=== PATIENT | male | born 1955 | race Caucasian/White ===

== ENCOUNTER → 2019-07-15 | Outpatient (CLI) | payer OTHER ==
[2019-07-15 11:18] LABS: BASO % 0.5 % (0.0-2.0); EOS # 0.1 (0.0-0.7); EOS % 2.6 % (0-4.0); GRAN # 2.1 (1.4-6.5); GRAN % 53.7 % (42.2-75.2); HEMATOCRIT 40.2 % (42.0-52.0); HEMOGLOBIN 13.1 g/dl (13.5-18.0); LYMPH # 1.1 (1.2-3.4); LYMPH % 28.2 % (20.0-51.0); MEAN CELL VOLUME 96 fl (80.0-100.0); MEAN CORPUSCULAR HEMOGLOBIN 31 pg (27.0-31.0); MEAN CORPUSCULAR HGB CONC 33 g/dl (33.0-37.0); MEAN PLATELET VOLUME 10.9 fl (7.4-10.4); MONO # 0.6 (0.1-0.6); MONO % 14.7 % (1.7-9.3); PLATELET COUNT 137 K/mm3 (130-400); RED BLOOD COUNT 4.21 M/mm3 (4.20-5.60); REDCELL DISTRIBUTION WIDTH-CV 14.6 % (11.5-14.5)
[2019-07-15 11:44] LABS: ALBUMIN 4.1 gm/dL (3.5-5.0); BILIRUBIN,TOTAL 0.9 mg/dL (0.0-1.0); CALCIUM 9.2 mg/dL (8.4-10.2); CHOLESTEROL RISK RATIO 2.5; CREATININE, serum 0.8 (0.66-1.25); POTASSIUM 4.5 mmol/L (3.4-5.0); TOTAL PROTEIN 7.3 gm/dL (6.4-8.2)
[2019-07-15 12:13] LABS: THYROID STIMULATING HORMONE 2.24 uIU/mL (0.465-4.680)
== END ==
LOC: ZLAB.FHCC 10:59
PROVIDERS: Pediatrics
DX: I48.91 Unspecified atrial fibrillation (principal); F10.929 Alcohol use, unspecified with intoxication, unspecified

== ENCOUNTER 2019-11-20 14:37 | Emergency (ER) | payer SELFPAY ==
[~2019-11-20] VITALS: Ht 182.9 cm; Wt 102.3 kg
[2019-11-20 14:51] VITALS: TEMP 98.2
[2019-11-20 15:54] LABS: COLLECTION METHOD CLEAN CATCH
[2019-11-20 15:59] LABS: BASO % 0.4 % (0.0-2.0); EOS # 0.2 (0.0-0.7); EOS % 3.6 % (0-4.0); GRAN # 3.5 (1.4-6.5); GRAN % 65.9 % (42.2-75.2); HEMOGLOBIN 11.3 g/dl (13.5-18.0); LYMPH % 19.6 % (20.0-51.0); MEAN CELL VOLUME 94 fl (80.0-100.0); MEAN CORPUSCULAR HEMOGLOBIN 30 pg (27.0-31.0); MEAN CORPUSCULAR HGB CONC 32 g/dl (33.0-37.0); MEAN PLATELET VOLUME 12.1 fl (7.4-10.4); MONO # 0.5 (0.1-0.6); MONO % 10.3 % (1.7-9.3); PLATELET COUNT 101 K/mm3 (130-400); RED BLOOD COUNT 3.76 M/mm3 (4.20-5.60); REDCELL DISTRIBUTION WIDTH-CV 18.4 % (11.5-14.5)
[2019-11-20 16:00] LABS: HEMATOCRIT 35.5 % (42.0-52.0)
[2019-11-20 16:02] LABS: PH 6 (5-8); SQUAMOUS EPITHELIAL 0-2 /hpf; URINE APPEARANCE Clear; URINE BACTERIA Rare /hpf; URINE BILIRUBIN Negative (NEGATIVE); URINE BLOOD 2+ (NEGATIVE); URINE COLOR Yellow; URINE GLUCOSE Negative (NEGATIVE); URINE KETONE Negative (NEGATIVE); URINE LEUKOCYTE ESTERASE Negative (NEGATIVE); URINE NITRATE Negative (NEGATIVE); URINE PROTEIN(semi-quant) Negative (NEGATIVE); URINE UROBILINOGEN >=4.0 mg/dL (NEGATIVE)
[2019-11-20 16:31] LABS: INR 1.6 (0.8-3.0); PROTHROMBIN TIME 17.7 SECONDS (9.7-12.8)
[2019-11-20 16:39] LABS: ALBUMIN 3.4 gm/dL (3.5-5.0); BILIRUBIN,TOTAL 1.7 mg/dL (0.0-1.0); C-REACTIVE PROTEIN 3.8 mg/dL (0.0-0.9); CALCIUM 8.3 mg/dL (8.4-10.2); CREATININE, serum 0.92 (0.66-1.25); POTASSIUM 3.9 mmol/L (3.4-5.0); TOTAL PROTEIN 8.2 gm/dL (6.4-8.2)
[2019-11-20 18:30] VITALS: BP 140/97; PULSE 138
== END 2019-11-20 18:30 | disposition short-term general hospital (02) ==
LOC: COL.ER 14:37
PROVIDERS: Emergency Medicine
DX: L03.116 Cellulitis of left lower limb (principal); L03.115 Cellulitis of right lower limb; I48.91 Unspecified atrial fibrillation; N50.89 Other specified disorders of the male genital organs; Z86.73 Personal history of transient ischemic attack (TIA), and cerebral infarction without residual deficits
CPT/HCPCS: J3370; J7030; J7050

== ENCOUNTER 2020-01-10 19:40 | Inpatient (IN) | payer OTHER ==
[2020-01-10] VITALS (74 sets, daily range): BP systolic 119; BP diastolic 87; PULSE 150–155; TEMP 98.1–98.3; O2SAT 95–100
[~2020-01-10] VITALS: Ht 182.9 cm; Wt 111.9 kg
[2020-01-10 19:58] LABS: BASO % 0.6 % (0.0-2.0); EOS # 0.2 (0.0-0.7); EOS % 4.7 % (0-4.0); GRAN # 2.6 (1.4-6.5); GRAN % 51.1 % (42.2-75.2); HEMOGLOBIN 11.5 g/dl (13.5-18.0); LYMPH # 1.7 (1.2-3.4); LYMPH % 33.1 % (20.0-51.0); MEAN CELL VOLUME 94 fl (80.0-100.0); MEAN CORPUSCULAR HEMOGLOBIN 31 pg (27.0-31.0); MEAN CORPUSCULAR HGB CONC 33 g/dl (33.0-37.0); MEAN PLATELET VOLUME 9.5 fl (7.4-10.4); MONO # 0.5 (0.1-0.6); MONO % 10.3 % (1.7-9.3); PLATELET COUNT 130 K/mm3 (130-400); RED BLOOD COUNT 3.75 M/mm3 (4.20-5.60); REDCELL DISTRIBUTION WIDTH-CV 17.8 % (11.5-14.5)
[2020-01-10 19:59] LABS: HEMATOCRIT 35.3 % (42.0-52.0)
[2020-01-10 20:02] LABS: INR 1.3 (0.8-3.0); PROTHROMBIN TIME 14.7 SECONDS (9.7-12.8)
[2020-01-10 20:11] LABS: ALANINE AMINOTRANSFERASE 13 U/L (4-49); ALBUMIN 4.2 gm/dL (3.5-5.0); ALKALINE PHOSPHATASE 120 U/L (50-136); ANION GAP 11 mmol/L (7-16); AST,SGOT 35 U/L (15-37); BILIRUBIN,TOTAL 1.1 mg/dL (0.0-1.0); BLOOD UREA NITROGEN 8 mg/dL (9-20); C-REACTIVE PROTEIN 1.4 mg/dL (0.0-0.9); CARBON DIOXIDE 20 mmol/L (22-30); CHLORIDE 103 mmol/L (98-107); CREATININE, serum 0.77 (0.66-1.25); GLUCOSE 90 mg/dL (74-106); POTASSIUM 3.8 mmol/L (3.4-5.0); SODIUM 134 mmol/L (137-145)
[2020-01-10 20:27] LABS: TROPONIN-I < 0.012 ng/mL (0.000-0.035)
[2020-01-11] VITALS (702 sets, daily range): BP systolic 105–134; BP diastolic 75–101; PULSE 86–137; TEMP 97.9–98.4; O2SAT 63–100
[2020-01-11 05:36] LABS: BASO % 0.5 % (0.0-2.0); EOS # 0.2 (0.0-0.7); EOS % 4.6 % (0-4.0); GRAN # 2.3 (1.4-6.5); GRAN % 52.8 % (42.2-75.2); HEMOGLOBIN 10.7 g/dl (13.5-18.0); LYMPH # 1.3 (1.2-3.4); LYMPH % 28.8 % (20.0-51.0); MEAN CELL VOLUME 95 fl (80.0-100.0); MEAN CORPUSCULAR HEMOGLOBIN 31 pg (27.0-31.0); MEAN CORPUSCULAR HGB CONC 32 g/dl (33.0-37.0); MEAN PLATELET VOLUME 9.8 fl (7.4-10.4); MONO # 0.6 (0.1-0.6); MONO % 13.1 % (1.7-9.3); PLATELET COUNT 119 K/mm3 (130-400); REDCELL DISTRIBUTION WIDTH-CV 17.9 % (11.5-14.5)
[2020-01-11 05:37] LABS: HEMATOCRIT 33.1 % (42.0-52.0)
[2020-01-11 05:45] LABS: ALANINE AMINOTRANSFERASE 12 U/L (4-49); ALBUMIN 3.6 gm/dL (3.5-5.0); ALKALINE PHOSPHATASE 101 U/L (50-136); ANION GAP 7 mmol/L (7-16); AST,SGOT 31 U/L (15-37); BLOOD UREA NITROGEN 8 mg/dL (9-20); CALCIUM 8.6 mg/dL (8.4-10.2); CARBON DIOXIDE 23 mmol/L (22-30); CHLORIDE 106 mmol/L (98-107); CHOLESTEROL 142 mg/dL (120-200); CHOLESTEROL RISK RATIO 1.9; CREATININE, serum 0.69 (0.66-1.25); GLUCOSE 87 mg/dL (74-106); HDL CHOLESTEROL 72 mg/dL; LDL CHOLESTEROL 57 mg/dL; POTASSIUM 3.8 mmol/L (3.4-5.0); SODIUM 136 mmol/L (137-145); TOTAL PROTEIN 8.1 gm/dL (6.4-8.2); TRIGLYCERIDE 65 mg/dL
[2020-01-11 06:12] LABS: TROPONIN-I < 0.012 ng/mL (0.000-0.035)
[2020-01-12] VITALS (52 sets, daily range): BP systolic 130–140; BP diastolic 79–98; PULSE 103–126; TEMP 97.7–98.6; O2SAT 55–100
[2020-01-12 06:34] LABS: BASO % 0.5 % (0.0-2.0); EOS # 0.2 (0.0-0.7); EOS % 5.6 % (0-4.0); GRAN # 2.3 (1.4-6.5); GRAN % 58.1 % (42.2-75.2); LYMPH % 24.9 % (20.0-51.0); MEAN CELL VOLUME 96 fl (80.0-100.0); MEAN CORPUSCULAR HEMOGLOBIN 31 pg (27.0-31.0); MEAN CORPUSCULAR HGB CONC 32 g/dl (33.0-37.0); MEAN PLATELET VOLUME 10.5 fl (7.4-10.4); MONO # 0.4 (0.1-0.6); MONO % 10.9 % (1.7-9.3); PLATELET COUNT 116 K/mm3 (130-400); RED BLOOD COUNT 3.53 M/mm3 (4.20-5.60); REDCELL DISTRIBUTION WIDTH-CV 17.9 % (11.5-14.5)
[2020-01-12 06:52] LABS: CALCIUM 8.9 mg/dL (8.4-10.2); CREATININE, serum 0.78 (0.66-1.25); POTASSIUM 4.2 mmol/L (3.4-5.0)
[2020-01-13 04:08] VITALS: BP 141/94; PULSE 128
[2020-01-13 07:13] LABS: BASO % 0.3 % (0.0-2.0); EOS # 0.2 (0.0-0.7); EOS % 5.2 % (0-4.0); GRAN # 1.6 (1.4-6.5); GRAN % 47.2 % (42.2-75.2); HEMOGLOBIN 11.1 g/dl (13.5-18.0); LYMPH # 1.2 (1.2-3.4); LYMPH % 36.6 % (20.0-51.0); MEAN CELL VOLUME 96 fl (80.0-100.0); MEAN CORPUSCULAR HEMOGLOBIN 31 pg (27.0-31.0); MEAN CORPUSCULAR HGB CONC 32 g/dl (33.0-37.0); MEAN PLATELET VOLUME 10.1 fl (7.4-10.4); MONO # 0.3 (0.1-0.6); MONO % 10.4 % (1.7-9.3); PLATELET COUNT 108 K/mm3 (130-400)
[2020-01-13 07:18] LABS: HEMATOCRIT 34.6 % (42.0-52.0)
[2020-01-13 07:25] VITALS: BP 135/93; PULSE 75; TEMP 98.1
[2020-01-13 07:27] LABS: CALCIUM 9.2 mg/dL (8.4-10.2); CREATININE, serum 0.81 (0.66-1.25); POTASSIUM 4.2 mmol/L (3.4-5.0)
[2020-01-13 16:30] VITALS: BP 140/96; PULSE 48; TEMP 98.4
[2020-01-13 19:33] VITALS: BP 148/84; PULSE 109; TEMP 97.4
[2020-01-13 23:46] VITALS: BP 138/74; PULSE 115; TEMP 98.4
[2020-01-14 04:00] VITALS: BP 142/95; PULSE 83; TEMP 98.3
[2020-01-14 07:26] LABS: CALCIUM 9.3 mg/dL (8.4-10.2); CREATININE, serum 0.79 (0.66-1.25); POTASSIUM 4.3 mmol/L (3.4-5.0)
[2020-01-14 08:01] VITALS: BP 147/93; PULSE 60; TEMP 97.6
[2020-01-14 12:39] VITALS: BP 148/71; PULSE 109; TEMP 98
[2020-01-14] MEDS ORDERED: DIGITEK0.125 MG PO (13:10)
[2020-01-14] MEDS ORDERED: ASPIRIN 81M81 MG/TA2 PO (13:11)
[2020-01-14] MEDS ORDERED: LANOXIN 0.25M0.25 MG PO ×2 (13:11)
[2020-01-14] MEDS ORDERED: [UNRECOGNIZED DRUG - CODE] TP (13:11)
[2020-01-14] MEDS ORDERED: LASIX 20MG TABL20 MG PO (13:11)
[2020-01-14] MEDS ORDERED: PRINIVIL10 MG PO (13:11)
[2020-01-14] MEDS ORDERED: LIPITOR 40MG TA40 MG PO (13:12)
[2020-01-14] MEDS ORDERED: LOPRESSOR100 MG PO (13:12)
[2020-01-14] MEDS ORDERED: NITROSTAT0.4 MG/TAB SL (13:12)
[2020-01-14 16:56] VITALS: BP 135/99; PULSE 75; TEMP 97.8
[2020-01-14 19:41] VITALS: BP 135/93; PULSE 63; TEMP 97.9
[2020-01-15 01:03] VITALS: PULSE 98
[2020-01-15 04:24] LABS: BASO % 0.8 % (0.0-2.0); EOS # 0.1 (0.0-0.7); EOS % 3.3 % (0-4.0); GRAN # 1.8 (1.4-6.5); GRAN % 48.4 % (42.2-75.2); HEMOGLOBIN 11.7 g/dl (13.5-18.0); LYMPH # 1.3 (1.2-3.4); LYMPH % 34.3 % (20.0-51.0); MEAN CELL VOLUME 95 fl (80.0-100.0); MEAN CORPUSCULAR HEMOGLOBIN 31 pg (27.0-31.0); MEAN CORPUSCULAR HGB CONC 32 g/dl (33.0-37.0); MEAN PLATELET VOLUME 9.8 fl (7.4-10.4); MONO # 0.5 (0.1-0.6); MONO % 12.9 % (1.7-9.3); PLATELET COUNT 127 K/mm3 (130-400); RED BLOOD COUNT 3.81 M/mm3 (4.20-5.60); REDCELL DISTRIBUTION WIDTH-CV 17.9 % (11.5-14.5)
[2020-01-15 04:25] VITALS: BP 145/75; PULSE 58; TEMP 98.2
[2020-01-15 04:26] LABS: HEMATOCRIT 36.1 % (42.0-52.0)
[2020-01-15 04:35] LABS: CALCIUM 9.5 mg/dL (8.4-10.2); CREATININE, serum 0.8 (0.66-1.25); MAGNESIUM 1.7 mg/dL (1.6-2.3); POTASSIUM 4.3 mmol/L (3.4-5.0)
[2020-01-15 09:25] VITALS: BP 133/74; PULSE 87; TEMP 97.7
== END 2020-01-15 11:00 | disposition home or self-care (01) | DRG 309 ==
LOC: COL.ER 19:40 → MEDICAL 20:33 → ICU 20:33 → MEDICAL 01-12 13:15
PROVIDERS: Emergency Medicine; Hospitalist; Physician Assistant; Student in an Organized Health Care Education/Training Program; ADMIT Family Medicine
DX: I48.91 Unspecified atrial fibrillation (principal); I50.22 Chronic systolic (congestive) heart failure; I11.0 Hypertensive heart disease with heart failure; I25.10 Atherosclerotic heart disease of native coronary artery without angina pectoris; L40.9 Psoriasis, unspecified; Z86.73 Personal history of transient ischemic attack (TIA), and cerebral infarction without residual deficits; Z79.82 Long term (current) use of aspirin; Z95.5 Presence of coronary angioplasty implant and graft
CPT/HCPCS: 99223-AI; 99232-AI; 99233-AI; 99239; J1650; J2270; J2405; J3475; J7030